=== PATIENT | female | born 1950 | race Hispanic/Latino ===

== ENCOUNTER 2016-08-25 13:59 | Outpatient (CLI) | payer BC ==
--- NOTE | 2016-08-25 14:36 | Mammography Report ---
Bilateral mammogram: Compared to 08/22/15 and 04/28/13. CAD study utilized. Findings: Predominance adipose tissue bilaterally. Diffuse scattered microcalcifications without definite pleomorphism. No significant interval change. No abnormal mass. Impression: Benign findings. Annual followup recommended. BI-RADS CATEGORY: 2 = Benign ACR BI-RADS MAMMOGRAPHIC CODES: 0 = Needs additional imaging evaluation; 1 = Negative; 2 = Benign; 3 = Probably benign; 4 = Suspicious; 5 = Malignant; 6 = Known biopsy-proven malignancy COMMENT: 1. Dense breast tissue, i.e., adenosis, fibrocystic changes, etc., may obscure an underlying neoplasm. 2. Approximately 10% of cancers are not detected with mammography. 3. A negative mammography report should not delay biopsy if a clinically suspicious mass is present. COMMENT: Patient follow-up letters are generated in [employer].
== END 2016-08-25 14:00 | disposition home or self-care (01) ==
LOC: MAMMO 13:59
PROVIDERS: ATTEND Obstetrics & Gynecology
DX: Z12.31 Encounter for screening mammogram for malignant neoplasm of breast (principal); E11.9 Type 2 diabetes mellitus without complications; I10 Essential (primary) hypertension
CPT/HCPCS: 77067; G0202

== ENCOUNTER 2017-09-06 13:07 | Outpatient (CLI) | payer MEDICARE ==
--- NOTE | 2017-09-08 08:57 | Mammography Report ---
Bilateral mammogram: Compared to 08/25/16 and 08/22/15. CAD study utilized. Findings: Diffuse microcalcifications right and left breast. No mass. Denies any notice. No significant interval change. Impression: Benign findings. Annual followup recommended. BI-RADS CATEGORY: 2 = Benign ACR BI-RADS MAMMOGRAPHIC CODES: 0 = Needs additional imaging evaluation; 1 = Negative; 2 = Benign; 3 = Probably benign; 4 = Suspicious; 5 = Malignant; 6 = Known biopsy-proven malignancy COMMENT: 1. Dense breast tissue, i.e., adenosis, fibrocystic changes, etc., may obscure an underlying neoplasm. 2. Approximately 10% of cancers are not detected with mammography. 3. A negative mammography report should not delay biopsy if a clinically suspicious mass is present. COMMENT: Patient follow-up letters are generated in [employer].
== END 2017-09-06 13:08 | disposition home or self-care (01) ==
LOC: MAMMO 13:07
PROVIDERS: ATTEND Obstetrics & Gynecology
DX: Z12.31 Encounter for screening mammogram for malignant neoplasm of breast (principal)
CPT/HCPCS: 77067

== ENCOUNTER 2018-07-13 13:07 | Outpatient (CLI) | payer MEDICARE ==
--- NOTE | 2018-07-13 16:55 | Ultrasound Report ---
BILATERAL DIGITAL DIAGNOSTIC MAMMOGRAM with CAD and LEFT BREAST ULTRASOUND: 07/13/18 13:07:00 CLINICAL: Left breast pain and lumps. The patient was not specific as to where she feels lumps. COMPARISON:09/06/17 FINDINGS: The breasts are mostly fatty with extensive bilateral diffuse benign calcifications which appear to be dermal. Similar calcifications are identified inferior to the breast and in the axillae. A low density partially circumscribed left outer breast mass is unchanged compared to previous exams. A partially calcified and partially circumscribed left inner mass is unchanged. No new mass, architectural distortion or suspicious calcifications. Ultrasound of left breast (including all four quadrants and the retroareolar area) was performed. An oval slightly irregular hyperechoic mass at 2 o'clock 5 cm from the nipple measures 1.1 x 0.5 x 0.5 cm. It produces mild shadowing and correlates with the outer mammographic mass. A partially calcified isoechoic mass at 5 o'clock 2 cm from the nipple measures 7 x 3 x 6 mm. A partially calcified mass at 7 o'clock 1 cm from the nipple measures 6 x 5 x 7 mm. No other mass and no cysts. IMPRESSION: No mammographic evidence of malignancy.No explanation for left breast pain. BI-RADS CATEGORY: 2 - - Benign RECOMMENDATION: Routine mammographic screening in one year. COMMENT: 1. Dense breast tissue, i.e., adenosis, fibrocystic changes, etc., may obscure an underlying neoplasm. 2. Approximately 10% of cancers are not detected with mammography. 3. A negative mammography report should not delay biopsy if a clinically suspicious mass is present. COMMENT: Patient follow-up letters are generated by our [employer] application.
== END 2018-07-13 13:08 | disposition home or self-care (01) ==
LOC: MAMMO 13:07
PROVIDERS: ATTEND Obstetrics & Gynecology
DX: R92.1 Mammographic calcification found on diagnostic imaging of breast (principal); I10 Essential (primary) hypertension; E11.9 Type 2 diabetes mellitus without complications; E78.5 Hyperlipidemia, unspecified
CPT/HCPCS: 77066

== ENCOUNTER 2019-04-20 05:58 | Day surgery (SDC) | payer MEDICARE ==
[2019-04-20] MEDS ORDERED: SODIUM CHLORIDE 0.9% 1000 ML 1,000 ML IV SCH (07:00)
[2019-04-20] MEDS ORDERED: PROPOFOL 200 MG/20 ML VIAL IV ONE ×2 (07:26→07:27)
[2019-04-20] MEDS ORDERED: LIDOCAINE (2%) 20 MG/1 ML VIAL 20 ML MDV INFILTRATI ONE (07:27)
--- NOTE | 2019-04-20 07:33 | Anesthesia Consultation ---
Anesthesia Consult and Med Hx Date of service: 04/20/19 - Airway Anesthetic Teeth Evaluation: Good, Bridges ROM Head & Neck: Adequate Mental/Hyoid Distance: Adequate Mallampati Class: Class II Intubation Access Assessment: Good - Pulmonary Exam CTA: Yes - Cardiac Exam Cardiac Exam: RRR - Pre-Operative Health Status ASA Pre-Surgery Classification: ASA3 Proposed Anesthetic Plan: MAC - Pulmonary Hx Smoking: Yes Hx Asthma: No SOB: Yes (Presently not SOB) - Cardiovascular System Hx Hypertension: Yes Hx Coronary Artery Disease: No (H/O Chest pain. Clearance on chart) Hx Cardia Arrhythmia: Yes (palpitations) - Central Nervous System CVA: Yes - Endocrine Hx End Stage Renal Disease: No Hx Non-Insulin Dependent Diabetes: Yes Hx Hypothyroidism: Yes - Additional Comments Anesthesia Medical History Comments: glaucoma, hyperlipidemia. ECHO: mild LVH with grade 1 diastolic dysfunction. EF 55-60%. Perfusion scan no ischemia.
--- NOTE | 2019-04-20 07:37 | Anesthesia Day of Surgery ---
Anesthesia Day of Surgery - Day of Surgery Patient Examined: Yes Patient H&P Reviewed: Yes Patient is NPO: Yes Cardiac Clearance: Yes
[2019-04-20] MEDS ORDERED: LIDOCAINE MPF (2%) 20 MG/1 ML VIAL 5 ML ONE (08:00)
--- NOTE | 2019-04-20 08:50 | Short Stay Summary ---
Short Stay Documentation - Allergies and Medications Current Medications: Allergies No Known Allergies Allergy (Verified 04/19/19 10:11) Home Medications Medication Instructions Recorded Confirmed Last Taken Type Aspirin [Aspirin BABY CHEW TAB] 81 mg PO QDAY 12/13/12 04/19/19 12/13/12 09:00 History Citalopram [Celexa] 20 mg PO QDAY 12/13/12 04/19/19 12/13/12 15:00 History Estradiol [Divigel 0.1%] 0.05 mg TRANSDERMA 2XW 12/13/12 04/19/19 12/13/12 08:00 History Estrogens, Conjugated [Premarin 1 applicator VG 1XW 12/13/12 04/19/19 12/13/12 10:00 History 0.625 mg/gram VAG CREAM] Fenofibric Acid (Choline) 135 mg PO QDAY 12/13/12 04/19/19 04/19/19 History [Trilipix] Latanoprost [Xalatan 0.005% eye 1 drop OU QPM 12/13/12 04/19/19 04/19/19 History drops] Levothyroxine Sodium 50 mcg PO QAM 12/13/12 04/19/19 12/13/12 08:00 History [Levothyroxine] Pioglitazone [Actos] 15 mg PO QDAY 12/13/12 04/19/19 12/12/12 20:00 History Pravastatin Sodium [Pravastatin] 20 mg PO QDAY 12/13/12 04/19/19 12/13/12 09:00 History Progesterone, Micronized 200 mg PO QDAY 12/13/12 04/19/19 12/13/12 10:00 History [Prometrium] amLODIPine 5 mg PO DAILY 12/13/12 04/19/19 04/19/19 History lisinopriL [Zestril TAB] 40 mg PO QDAY 12/13/12 04/19/19 04/19/19 History metFORMIN [Glucophage] 1,000 mg PO BID 12/13/12 04/19/19 04/18/19 History Fish Oil 1,200 mg PO DAILY 04/19/19 04/19/19 Unknown History Hydrochlorothiazide 12.5 mg PO DAILY 04/19/19 04/19/19 04/19/19 History Lipitor 10 mg PO DAILY 04/19/19 04/19/19 04/19/19 History Lysine 500 mg PO DAILY 04/19/19 04/19/19 Unknown History Magnesium 400 mg PO BID 04/19/19 04/19/19 Unknown History Norvasc 10 mg PO DAILY 04/19/19 04/19/19 04/19/19 History Active Medications Sodium Chloride (Nacl 0.9% 1000 Ml) 1,000 mls @ 50 mls/hr IV DIRECT ОЛЬГА - Brief post op/procedure progress note Date of procedure: 04/20/19 Pre-op diagnosis: 1. GERD 2, Colon cancer screening Post-op diagnosis: same (1. GERD 2,. Gastritis 3. Gastric ulcers 4. Duodenitis Colonoscopy: 1. Colon polyp 2. Diverticulosis 3. Hemorrhoids) Procedure: 1. EGD with biopsy 2. Colonoscopy with polypectomy Anesthesia: MAC Findings: as above Surgeon: JACQUELINE BENSON Estimated blood loss: none Pathology: list (1. Antrum 2. Splenic flexure polyp) Specimen disposition: to lab Condition: stable - Disposition Condition at discharge: Stable Short Stay Discharge Plan Activity: no restrictions Weight Bearing Status: Full Weight Bearing Diet: regular, low salt Follow up with: SHYANN CHU MD [Primary Care Provider] - 7 Days
[2019-04-20 08:53] VITALS: BP 141/48
--- NOTE | 2019-04-20 09:31 | Post Anesthesia Evaluation ---
- Post Anesthesia Evaluation Patient Participated: Yes Airway Patent: Yes Stable Respiratory Function: Yes Temp > 96.8F: Yes Pain Manageable: Yes Adequeate Hydration: Yes Anesthesia Complications: No
== END 2019-04-20 05:59 | disposition home or self-care (01) ==
LOC: GIO 05:58
PROVIDERS: ATTEND Internal Medicine Gastroenterology
DX: Z12.11 Encounter for screening for malignant neoplasm of colon (principal); K51.40 Inflammatory polyps of colon without complications; K64.8 Other hemorrhoids; R10.13 Epigastric pain; K21.9 Gastro-esophageal reflux disease without esophagitis; K52.9 Noninfective gastroenteritis and colitis, unspecified; K29.80 Duodenitis without bleeding; E11.39 Type 2 diabetes mellitus with other diabetic ophthalmic complication; K29.50 Unspecified chronic gastritis without bleeding; K57.30 Diverticulosis of large intestine without perforation or abscess without bleeding; H40.9 Unspecified glaucoma; I42.9 Cardiomyopathy, unspecified; E78.00 Pure hypercholesterolemia, unspecified; I10 Essential (primary) hypertension; E03.9 Hypothyroidism, unspecified; F41.9 Anxiety disorder, unspecified; Z86.73 Personal history of transient ischemic attack (TIA), and cerebral infarction without residual deficits; Z98.890 Other specified postprocedural states
CPT/HCPCS: 43239; 45385; 82962; 88305; 88342; J2704; J7030

== ENCOUNTER 2020-01-08 13:08 | Outpatient (CLI) | payer MEDICARE ==
--- NOTE | 2020-01-09 09:57 | Mammography Report ---
DIGITAL SCREENING MAMMOGRAM WITH CAD, 01/08/2020 INDICATION: Routine screening mammography. TECHNIQUE: Digital bilateral 2D mammography was obtained in the craniocaudal and mediolateral obliq ue projections. This examination was interpreted with the benefit of Computer-Aided Detection analysi s. COMPARISON: 07/13/2018, 09/06/2017 FINDINGS: Breast Density: The breasts are almost entirely fatty. There is no evidence of dominant mass, suspicious calcifications or architectural distortion in eithe r breast. Diffuse bilateral benign calcifications are unchanged. No other significant interval change s. IMPRESSION: Follow up recommendation: Routine yearly BI-RADS Category 2: Benign. A "normal" or negative report should not discourage follow up or biopsy of a clinically significant f inding. A written summary of these findings will be mailed to the patient. The patient will be entered into a mammography reporting system which will generate a reminder letter for the patient's next appointmen t at the appropriate interval. The [employer] recommends yearly mammograms starting at age 40 and continuing as l jose as a woman is in good health. Breast MRI is recommended for women with an approximate 20-25% or greater lifetime risk of breast cancer, including women with a strong family history of breast or ova mani cancer or who have been treated for Hodgkin's disease. Signer Name: Jay Davidson MD Signed: 01/09/2020 9:08 AM Workstation Name: [email or web address]
--- NOTE | 2020-01-09 12:16 | Mammography Report ---
DEXA BONE DENSITY SCAN INDICATION / CLINICAL INFORMATION: Screening for osteoporosis. Postmenopausal patient. 69 years Female COMPARISON: None available. LUMBAR SPINE, L1-L4: - Bone mineral density (BMD) = 0.991 g/cm2. - T-score = -0.5 - Z-score = 1.5 Change (%) since most recent prior (if available): None available. LEFT HIP, TOTAL : - Bone mineral density (BMD) = 0.669 g/cm2. - T-score = -2.2 - Z-score = -0.9 Change (%) since most recent prior (if available): None available. IMPRESSION: 1. WHO Classification: Osteopenia. Fracture Risk: Increased. BMD Reporting Guidelines (ISCD, 2015) BMD Reporting in Postmenopausal Women and in Men Age 50 and Older * T-scores are preferred. * The WHO densitometric classification is applicable. BMD Reporting in Females Prior to Menopause and in Males Younger Than Age 50 * Z-scores, not T-scores, are preferred. This is particularly important in children. * A Z-score of -2.0 or lower is defined as below the expected range for age, and a Z-score above -2. 0 is within the expected range for age. * Osteoporosis cannot be diagnosed in men under age 50 on the basis of BMD alone. * The WHO diagnostic criteria may be applied to women in the menopausal transition. http://www.iscd.org/official-positions/1746-yqhr-wzmxnjkk-positions-adult/ Signer Name: Jay Davidson MD Signed: 01/09/2020 12:11 PM Workstation Name: [id number]
== END 2020-01-08 13:09 | disposition home or self-care (01) ==
LOC: MAMMO 13:08
PROVIDERS: ATTEND Obstetrics & Gynecology
DX: Z12.31 Encounter for screening mammogram for malignant neoplasm of breast (principal); Z13.820 Encounter for screening for osteoporosis; M85.88 Other specified disorders of bone density and structure, other site; Z78.0 Asymptomatic menopausal state
CPT/HCPCS: 77067; 77080

== ENCOUNTER 2021-01-10 14:01 | Outpatient (CLI) | payer MEDICARE ==
--- NOTE | 2021-01-11 11:29 | Mammography Report ---
DIGITAL SCREENING MAMMOGRAM WITH CAD, 01/10/2021 CLINICAL INFORMATION / INDICATION: Routine screening mammography. SCREENING MAMMOGRAM TECHNIQUE: Digital bilateral 2D mammography was obtained in the craniocaudal and mediolateral obliqu e projections. This examination was interpreted with the benefit of Computer-Aided Detection analysis . COMPARISON: 01/08/2020 FINDINGS: Breast Density: There are scattered areas of fibroglandular density. No dominant mass, suspicious calcifications, or architectural distortion in either breast. Bilateral benign-appearing calcification and nodularity remains. IMPRESSION: No mammographic evidence of malignancy. Follow up recommendation: Routine yearly BI-RADS Category 2: Benign. A "normal" or negative report should not discourage follow up or biopsy of a clinically significant f inding. A written summary of these findings will be mailed to the patient. The patient will be entered into a mammography reporting system which will generate a reminder letter for the patient's next appointmen t at the appropriate interval. The [employer] recommends yearly mammograms starting at age 40 and continuing as l jose as a woman is in good health. Breast MRI is recommended for women with an approximate 20-25% or greater lifetime risk of breast cancer, including women with a strong family history of breast or ova mani cancer or who have been treated for Hodgkin's disease. Signer Name: Arian Madrid MD Signed: 01/11/2021 11:25 AM Workstation Name: [id number]
== END 2021-01-10 14:02 | disposition home or self-care (01) ==
LOC: MAMMO 14:01
PROVIDERS: ATTEND Obstetrics & Gynecology
DX: Z12.31 Encounter for screening mammogram for malignant neoplasm of breast (principal)
CPT/HCPCS: 77067